=== PATIENT | female | born 1950 | race Two or more races ===

== ENCOUNTER 2022-01-15 17:10 | Emergency (ER) | payer OTHER ==
[~2022-01-15] VITALS: Ht 152.4 cm; Wt 70.3 kg
[2022-01-15] MEDS ORDERED: DIOVAN160 M1 (17:41)
[2022-01-15] MEDS ORDERED: JANUMET 50-1,01 EACH (17:41)
[2022-01-15] MEDS ORDERED: FENOFIBRATE130 MG (17:41)
[2022-01-15] MEDS ORDERED: DICLOFENAC35 MG (17:42)
[2022-01-15] MEDS ORDERED: PANTOPRAZOLE SO20 MG (17:42)
[2022-01-15] MEDS ORDERED: ORPHENADRINE C100 MG PO (21:11)
== END 2022-01-15 21:27 | disposition home or self-care (01) ==
LOC: ER 17:10 → EDBD 17:34 → ER 21:27
DX: M62.830 Muscle spasm of back (principal); V43.62XA Car passenger injured in collision with other type car in traffic accident, initial encounter; Y93.9 Activity, unspecified; Y92.413 State road as the place of occurrence of the external cause

== ENCOUNTER 2022-09-04 09:42 | Outpatient (CLI) | payer OTHER ==
[~2022-09-04 09:42] MED LIST: DICLOFENAC35 MG; DIOVAN160 M1; FENOFIBRATE130 MG; JANUMET 50-1,01 EACH; ORPHENADRINE C100 MG PO; PANTOPRAZOLE SO20 MG
== END 2022-09-04 10:00 | disposition home or self-care (01) ==
LOC: RAD 09:42
PROVIDERS: ATTEND Orthopaedic Surgery
DX: M19.072 Primary osteoarthritis, left ankle and foot (principal)

== ENCOUNTER → 2024-08-09 | Emergency (ER) | payer OTHER ==
[~2024-08-09] VITALS: Ht 157.5 cm; Wt 62.1 kg
[~2024-08-09] MED LIST changes: +EZALLOR SPRINKL40 MG; +KETOROLAC TROMETHAMINE 30 MG VIAL IM STA; +NEURONTIN600 M1 PO; +ORPHENADRINE CITRATE 30 MG/ML AMPUL IM STA
== END | disposition home or self-care (01) ==
LOC: ER 18:27
DX: M43.6 Torticollis (principal)
CPT/HCPCS: 96372; 99282; J1885; J2360

== ENCOUNTER 2025-04-27 07:56 | Outpatient (CLI) | payer OTHER ==
[~2025-04-27 07:56] MED LIST changes: -KETOROLAC TROMETHAMINE 30 MG VIAL IM STA; -ORPHENADRINE CITRATE 30 MG/ML AMPUL IM STA
[2025-04-27 08:50] LABS: BASO % 0.5 % (0.1-1.2); EOS # 0.31 (0.04-0.54); EOS % 4.0 % (0.7-7.0); LYMPH # 2.46 (1.18-3.74); LYMPH % 31.5 % (19.3-53.1); MEAN PLATELET VOLUME 14.00 fl (9.4-12.4); MONO # 0.49 (0.24-0.82); MONO % 6.3 % (4.7-12.5); NEUT # 4.50 (1.56-6.13); NEUT % 57.4 % (34.0-71.1); RED CELL DISTRIBUTION WIDTH 14.7 % (11.6-14.4)
[2025-04-27 09:05] LABS: URINE APPEARANCE Clear; URINE BILIRRUBIN Negative (NEGATIVE); URINE BLOOD Negative; URINE COLOR Yellow; URINE KETONE Negative (NEGATIVE); URINE LEUKOCYTE Negative; URINE NITRATE Negative; URINE PROTEIN 30 (NEGATIVE); URINE UROBILINOGEN 0.2 E.U./dl
[2025-04-27 09:07] LABS: URINE BACTERIA 44.4 uL (0.0-1933); URINE EPITHELIAL CELLS 10.4 uL (0.0-38.8); URINE RBC 2.0 uL (0.0-20.8); URINE WBC 6.6 uL (0.0-23.2)
[2025-04-27 09:19] LABS: URINE CAST 0.29 uL (0.0-1.40); URINE GLUCOSE 500 MG/DL (NEGATIVE)
[2025-04-27 09:20] LABS: INR 1.08
[2025-04-27 09:27] LABS: ALT/SGPT 103.0 U/L (12-78); AST/SGOT 65.0 U/L (15-37); BILIRUBIN TOTAL 0.44 mg/dL (0.3-1.2); BUN CREA RATIO 32.0 (7.0-25.0); CREATININE SERUM 0.74 mg/dL (0.55-1.02); GFR 76.3; GLOBULINA 3.2 G/DL (2.4-3.5); GLUCOSE FASTING 100.0 mg/dL (65-100); OSMOLALITY SERUM 293.0 MOSM/KG (275-295)
[2025-04-27 09:44] LABS: COL EPI 87 SECONDS (82-175)
== END 2025-04-27 07:59 | disposition home or self-care (01) ==
LOC: LAB 07:56 → RAD 07:56 → LAB 07:59
PROVIDERS: ATTEND Orthopaedic Surgery
DX: D64.9 Anemia, unspecified (principal); E88.89 Other specified metabolic disorders; D68.8 Other specified coagulation defects; N39.0 Urinary tract infection, site not specified; Z22.322 Carrier or suspected carrier of Methicillin resistant Staphylococcus aureus; E11.9 Type 2 diabetes mellitus without complications; Z76.89 Persons encountering health services in other specified circumstances

== ENCOUNTER 2025-05-20 11:28 | Outpatient (CLI) | payer OTHER | END 2025-05-20 11:32 | disposition home or self-care (01) | LOC: SONOGRAMA 11:28 | PROVIDERS: ATTEND Orthopaedic Surgery | DX: M25.571 Pain in right ankle and joints of right foot (principal); M25.572 Pain in left ankle and joints of left foot; M79.672 Pain in left foot; M79.671 Pain in right foot ==